=== PATIENT | female | born 1970 | race Caucasian/White ===

== ENCOUNTER → 2021-01-19 | Outpatient (CLI) | payer OTHER ==
[2015-12-07 15:38] VITALS: BP 151/66
--- NOTE | 2021-01-19 11:10 | RAD ---
XR HAND_RIGHT 3 VIEWS 01/19/2021 10:44 AM INDICATION: Injury yesterday. Pain in thumb. COMPARISON: None available. TECHNIQUE: 3 views of the right hand. FINDINGS/ IMPRESSION: There is a fracture involving the base of the proximal pharynx of the first digit with fracture fragm ent measuring 3 mm. There is intra-articular involvement of the first metatarsophalangeal joint. Ashley articular subcortical cystic change identified at the base of the proximal phalanx of the second digi t . Joint spaces are maintained. Bone mineralization is within normal limits. Regional soft tissues a re within normal limits. There is no soft tissue gas or osseous erosion. No radiopaque foreign body. Electronically signed by: Pallavi Santiago MD (01/19/2021 11:08 AM) [id number]
== END ==
LOC: RAD 10:33
PROVIDERS: ATTEND Nurse Practitioner Family
DX: S62.511A Displaced fracture of proximal phalanx of right thumb, initial encounter for closed fracture (principal); M25.841 Other specified joint disorders, right hand; X58.XXXA Exposure to other specified factors, initial encounter; Y93.89 Activity, other specified; Y92.89 Other specified places as the place of occurrence of the external cause; Y99.8 Other external cause status
CPT/HCPCS: 73130